=== PATIENT | male | born 1945 | race American Indian/Alaskan Native ===

== ENCOUNTER 2017-06-18 08:34 | Day surgery (SDC) | payer MEDICARE, BC ==
[2014-06-15 10:01] VITALS: BMI 32.5
--- NOTE | 2017-06-18 09:41 | CP.SDSHP ---
Same Day Surgery H & P - History Proposed Procedure: colonoscopy - Previous Medical/Surgical History Cardiac: Hypertension Endocrine/Metabolic: Diabetes Previous Surgical History: knee sx left - Allergies Allergies: Allergies No Known Allergies Allergy (Verified 06/15/14 10:01) - Physical Exam Vital Signs: Vital Signs 06/18/17 09:09 Temperature 97.8 F Pulse Rate 65 Respiratory 20 Rate Blood Pressure 154/82 H O2 Sat by Pulse 96 Oximetry - Date & Time Date: 06/18/17 Time: 09:41 Short Stay Discharge - Short Stay Discharge Admitting Diagnosis/Reason for Visit: PERSONAL HISTORY OF COLONIC POLYPS Disposition: HOME/ ROUTINE
[2017-06-18] MEDS ORDERED: Albuterol HFA 90 mcg/actuation (8 g) ONE (09:51)
[2017-06-18] MEDS ORDERED: Propofol 10 mg/ml Inj (20 ML) ONE ×2 (09:52→10:10)
[2017-06-18] MEDS ORDERED: Lactated Ringer's 1,000 ML IV SCH (10:15)
[2017-06-18 10:52] VITALS: TEMP 97
[2017-06-18 11:39] VITALS: RESP 18
[2017-06-18 11:44] VITALS: BP 135/60; PULSE 60; O2SAT 99
== END 2017-06-18 11:30 | disposition home or self-care (01) ==
LOC: C.ENDO 08:34
PROVIDERS: ATTEND Colon & Rectal Surgery
DX: K63.5 Polyp of colon (principal); Z86.010 Personal history of colon polyps; Z79.82 Long term (current) use of aspirin; Z79.84 Long term (current) use of oral hypoglycemic drugs; Z79.899 Other long term (current) drug therapy; I25.10 Atherosclerotic heart disease of native coronary artery without angina pectoris; J44.9 Chronic obstructive pulmonary disease, unspecified; E11.9 Type 2 diabetes mellitus without complications; I10 Essential (primary) hypertension; E78.00 Pure hypercholesterolemia, unspecified; G47.33 Obstructive sleep apnea (adult) (pediatric); K63.89 Other specified diseases of intestine; K58.9 Irritable bowel syndrome, unspecified; K57.30 Diverticulosis of large intestine without perforation or abscess without bleeding; K64.8 Other hemorrhoids; D17.79 Benign lipomatous neoplasm of other sites
CPT/HCPCS: 45380; 82948; 88305; J2001; J2704; J7120